=== PATIENT | male | born 1980 | race American Indian/Alaskan Native ===

== ENCOUNTER 2017-02-25 10:45 | Emergency (ER) | payer SELFPAY ==
[2017-02-25 11:28] LABS: Basophils % (Auto) 0.9 % (0.0-1.8); Hematocrit 40.6 % (35.5-45.6); Hemoglobin 13.8 gm/dl (11.8-15.2); Mean Corpuscular HGB Conc 34 % (32-34); Mean Corpuscular Hemoglobin 30 pg (28-32); Mean Corpuscular Volume 88 fl (84-94); Platelet Count 184 K/mm3 (140-440); Red Blood Count 4.61 M/mm3 (3.65-5.03); Red Cell Distribution Width 13.3 % (13.2-15.2); White Blood Count 6.5 K/mm3 (4.5-11.0)
[2017-02-25 11:47] LABS: Anion Gap 18 mmol/L; BUN/Creatinine Ratio 12; Blood Urea Nitrogen 11 mg/dL (9-20); Calcium 9.4 mg/dL (8.4-10.2); Carbon Dioxide 25 mmol/L (22-30); Chloride 100.4 mmol/L (98-107); Glucose 90 mg/dL (75-100); Potassium 3.7 mmol/L (3.6-5.0); Sodium 140 mmol/L (137-145)
--- NOTE | 2017-02-25 13:32 | Emergency Department Report ---
ED Chest Pain HPI - General Chief Complaint: Chest Pain Stated Complaint: CHEST PAIN Time Seen by Provider: 02/25/17 13:10 Source: patient Mode of arrival: Ambulatory Limitations: No Limitations - History of Present Illness Initial Comments: This is a 36 year-old male presents to the emergency department home with complaint of a 3 day history of some left-sided chest pain that this morning started radiating towards his back. He denies any nausea, vomiting, shortness of breath, or diaphoresis. He has not taken anything for her symptoms presentation. He denies any tobacco or illicit drug use or abuse. He denies any past medical history. He does not have a primary care physician. Recent travel or sick contacts at home. He has a family history of early coronary artery disease in his father. Severity scale (0 -10): 8 - Related Data Home Medications Medication Instructions Recorded Confirmed Last Taken No Known Home Medications [No 02/25/17 02/25/17 Unknown Reported Home Medications] Allergies Allergy/AdvReac Type Severity Reaction Status Date / Time No Known Allergies Allergy Unverified 02/25/17 11:06 Heart Score - HEART Score History: Slightly suspicious EKG: Non-specific Age: < 45 Risk factors: 1-2 risk factors Troponin: < normal limit HEART Score: 2 - Critical Actions Critical Actions: 0-3 pts:0.9-1.7%risk of adverse cardiac event.Candidate for discharge ED Review of Systems ROS: Stated complaint: CHEST PAIN Other details as noted in HPI Comment: All other systems reviewed and negative Constitutional: denies: chills, fever Eyes: denies: eye pain, eye discharge, vision change ENT: denies: ear pain, throat pain Respiratory: denies: cough, shortness of breath, wheezing Cardiovascular: chest pain. denies: palpitations Gastrointestinal: denies: abdominal pain, nausea, diarrhea Genitourinary: denies: urgency, dysuria Musculoskeletal: back pain. denies: arthralgia Skin: denies: rash, lesions Neurological: denies: headache, weakness, paresthesias ED Past Medical Hx - Past Medical History Hx GERD: Yes - Surgical History Past Surgical History?: No - Social History Smoking Status: Never Smoker Substance Use Type: None - Medications Home Medications: Home Medications Medication Instructions Recorded Confirmed Last Taken Type No Known Home Medications [No 02/25/17 02/25/17 Unknown History Reported Home Medications] ED Physical Exam - General Limitations: No Limitations - Other Other exam information: GENERAL: The patient is well-developed well-nourished. HENT: Normocephalic. Atraumatic. Patient has moist mucous membranes. EYES: Extraocular motions are intact. Pupils equal reactive to light bilaterally. NECK: Supple. Trachea is midline. CHEST/LUNGS: Clear to auscultation. There is no respiratory distress noted. HEART/CARDIOVASCULAR: Regular. There is no tachycardia. There is no gallop rub or murmur. ABDOMEN: Abdomen is soft, nontender. Patient has normal bowel sounds. There is no abdominal distention. SKIN: Skin is warm and dry. NEURO: The patient is awake, alert, and oriented. The patient is cooperative. The patient has no focal neurologic deficits. The patient has normal speech. MUSCULOSKELETAL: There is no tenderness or deformity. There is no limitation range of motion. There is no evidence of acute injury. ED Course Vital Signs 02/25/17 02/25/17 02/25/17 10:49 11:04 11:38 Temperature 99.0 F 98.3 F Pulse Rate 76 82 68 Respiratory 18 18 10 L Rate Blood Pressure 148/80 O2 Sat by Pulse 99 100 Oximetry 02/25/17 02/25/17 02/25/17 11:45 11:56 12:00 Temperature Pulse Rate 71 65 Respiratory 14 14 14 Rate Blood Pressure 141/86 131/91 O2 Sat by Pulse Oximetry 02/25/17 02/25/17 02/25/17 12:15 12:30 12:45 Temperature Pulse Rate 62 63 64 Respiratory 17 17 11 L Rate Blood Pressure 134/86 131/92 133/88 O2 Sat by Pulse Oximetry 02/25/17 02/25/17 02/25/17 13:00 13:15 13:30 Temperature Pulse Rate 66 78 58 L Respiratory 18 15 8 L Rate Blood Pressure 121/85 126/79 135/91 O2 Sat by Pulse Oximetry 02/25/17 13:45 Temperature Pulse Rate 65 Respiratory 13 Rate Blood Pressure 121/91 O2 Sat by Pulse Oximetry UZIEL score - Uziel Score Age > 65: (0) No Aspirin use within the Past 7 Days: (0) No 3 or more CAD Risk Factors: (0) No 2 or more Angina events in past 24 hrs: (0) No Known CAD with more than 50% Stenosis: (0) No Elevated Cardiac Markers: (0) No ST Deviation Greater than 0.5mm: (0) No UZIEL Score: 0 ED Medical Decision Making - Lab Data Result diagrams: 02/25/17 11:08 02/25/17 11:08 - EKG Data -: EKG Interpreted by Me EKG shows normal: sinus rhythm, axis, intervals, QRS complexes, ST-T waves Rate: normal - EKG Data When compared to previous EKG there are: previous EKG unavailable Interpretation: other (Sinus, Rate of 71, left axis deviation, no previous EKG, NO STEMI) - Radiology Data Radiology results: image reviewed interpreted by me: Chest x-ray does not show any acute process. There are no pleural effusions, obvious pneumonia and there is no pneumothorax. - Medical Decision Making 36-year-old male presents with three-day history of some chest pain. His only risk factor for coronary artery disease is his father's early heart history. EKG does not show any signs of ST elevation VT. Labs are unremarkable including negative troponins 2 and a negative d-dimer. He was reevaluated multiple times at multiple hours and is feeling improved. Chest x-ray does not show any acute process. He appears safe for discharge home at this time. He' ll be given referrals for primary care as well as a scheduling clerk. He will return to the ER with any worsening of symptoms or any acute distress. - Differential Diagnosis costochondritis, VT, PE, GERD, pneumonia Critical Care Time: No Critical care attestation.: If time is entered above; I have spent that time in minutes in the direct care of this critically ill patient, excluding procedure time. ED Disposition Clinical Impression: Chest pain Qualifiers: Chest pain type: unspecified Qualified Code(s): R07.9 - Chest pain, unspecified Disposition: DC-01 TO HOME OR SELFCARE Is pt being admited?: No Condition: Stable Instructions: Chest Pain (ED) Additional Instructions: Please follow up with a primary care physician in the next few days. I have given you a referral for a local scheduling clerk, ana luisa Chang to follow up regarding your chest discomfort. Return to the emergency Department with any worsening of your symptoms or any acute distress. Referrals: ANA CORNEJO MD [Primary Care Provider] - 3-5 Days SANDRINE HARMON MD [Staff Physician] - 3-5 Days TEE RENEE MD [Staff Physician] - 3-5 Days [facility] [Outside] - 3-5 Days [facility] [Outside] - 3-5 Days Time of Disposition: 14:52
--- NOTE | 2017-02-25 13:33 | XRay Report ---
AP CHEST: HISTORY: chest pain AP view of the chest demonstrates a normal mediastinal and cardiac contour with clear lungs and normal bony and soft tissue structures. IMPRESSION: Unremarkable AP chest.
[2017-02-25] MEDS ORDERED: BABY ASPIRIN PO ONE (14:07)
[2017-02-25] MEDS ORDERED: NORCO 5/325 PO ONE (14:07)
[2017-02-25 15:43] VITALS: BP 120/64
== END 2017-02-25 15:43 | disposition home or self-care (01) ==
LOC: ED 10:45
DX: R07.89 Other chest pain (principal); K21.9 Gastro-esophageal reflux disease without esophagitis
CPT/HCPCS: 36415; 71010; 80048; 84484; 85025; 85379; 93005; 93010; 99284

== ENCOUNTER 2019-03-06 08:03 | Emergency (ER) | payer SELFPAY ==
--- NOTE | 2019-03-06 08:30 | XRay Report ---
RIGHT HAND, 3 VIEWS INDICATION: obvious deformity to Rt. ring finger. COMPARISON: None. IMPRESSION: Posterior dislocation is identified at the PIP joint of the fourth digit. No associated fracture is detected. The remaining bony structures and joint spaces are within normal limits. Soft t issue swelling of the fourth digit is noted. Signer Name: Xavier Davis Jr, MD Signed: 03/06/2019 8:26 AM Workstation Name: [id number]
--- NOTE | 2019-03-06 08:52 | Emergency Department Report ---
HPI - General Chief Complaint: Extremity Injury, Upper Time Seen by Provider: 03/06/19 08:37 - HPI HPI: Room 29 The patient is a 38-year-old male presenting with a chief complaint of finger pain. The patient states approximately one hour prior to arrival out of frustration he punched the steering wheel injuring his right ring finger. Patient presents with a deformity to the right ring finger at the PIP. Denies any other complaints Location: [See above] Duration: [See above] Quality: [See above] Severity: [See above] Timing: [See above] Context: [See above] Modifying factors: [See above] Associated signs and symptoms: [see above] ED Past Medical Hx - Past Medical History Hx GERD: Yes - Surgical History Past Surgical History?: No - Family History Family history: no significant - Social History Smoking Status: Never Smoker Substance Use Type: None - Medications Home Medications: Home Medications Medication Instructions Recorded Confirmed Last Taken Type HYDROcodone/APAP 5-325 [[place] 1 - 2 each PO Q6HR PRN #14 tablet 03/06/19 Unknown Rx 5/325] Ibuprofen [Motrin 800 MG tab] 800 mg PO Q8HR PRN #20 tablet 03/06/19 Unknown Rx ED Review of Systems ROS: Stated complaint: R FINGER INJURY Other details as noted in HPI Musculoskeletal: arthralgia Physical Exam - Physical Exam Vital Signs: Vital Signs 03/06/19 08:08 Temperature 97.7 F Pulse Rate 67 Respiratory 16 Rate Blood Pressure 162/91 O2 Sat by Pulse 99 Oximetry Physical Exam: GENERAL: The patient is well-developed well-nourished male sitting in chair not appearing to be in acute distress. [] HEENT: Normocephalic. Atraumatic. Extraocular motions are intact. Patient has moist mucous membranes. NECK: Trachea midline CHEST/LUNGS: There is no respiratory distress noted. HEART/CARDIOVASCULAR: Normal capillary refill right ring finger SKIN: There is no rash. There is no edema. There is no diaphoresis. No lacerations seen NEURO: The patient is awake, alert, and oriented. The patient is cooperative. Normal sensation to light touch. The patient has normal speech MUSCULOSKELETAL: There is pain and deformity of the right ring finger at the PIP ED Course Vital Signs 03/06/19 08:08 Temperature 97.7 F Pulse Rate 67 Respiratory 16 Rate Blood Pressure 162/91 O2 Sat by Pulse 99 Oximetry ED Medical Decision Making - Radiology Data Radiology results: report reviewed (right hand x-ray), image reviewed (right hand x-ray #1, right finger x-ray) interpreted by me: Ring finger dislocated at the PIP. No fracture seen Post reduction [id number]. No acute fracture Findings [facility] [address] [place] [address] XRay Report Signed Patient: NORMA PORTER MR#: [id number] : 1980 Acct:[id number] Age/Sex: 38 / M ADM Date: 03/06/19 Loc: ED Attending Dr: Ordering Physician: ED MD ANNEMARIE Date of Service: 03/06/19 Procedure(s): XR hand 3+V RT Accession Number(s): [id number] cc: ED MD ANNEMARIE Fluoro Time In Minutes: RIGHT HAND, 3 VIEWS INDICATION: obvious deformity to Rt. ring finger. COMPARISON: None. IMPRESSION: Posterior dislocation is identified at the PIP joint of the fourth digit. No associated fracture is detected. The remaining bony structures and joint spaces are within normal limits. Soft tissue swelling of the fourth digit is noted. Signer Name: Xavier Davis Jr, MD Signed: 03/06/2019 8:26 AM Workstation Name: [id number] Transcribed By: TTR Dictated By: XAVIER DAVIS JR, MD Electronically Authenticated By: XAVIER DAVIS JR, MD Signed Date/Time: 03/06/19825 DD/ 4 TD/TT: - Differential Diagnosis finger dislocation Critical care attestation.: If time is entered above; I have spent that time in minutes in the direct care of this critically ill patient, excluding procedure time. ED Disposition Clinical Impression: Dislocation of right ring finger, Finger pain Disposition: DC-01 TO HOME OR SELFCARE Is pt being admited?: No Does the pt Need Aspirin: No Condition: Stable Instructions: Finger Dislocation (ED) Additional Instructions: Return to the emergency department should you develop worsening symptoms, inability to tolerate food or liquids, high fever or any other concerns Prescriptions: Ibuprofen [Motrin 800 MG tab] 800 mg PO Q8HR PRN #20 tablet PRN Reason: Pain, Moderate (4-6) HYDROcodone/APAP 5-325 [[place] 5/325] 1 - 2 each PO Q6HR PRN #14 tablet PRN Reason: Pain Referrals: PRIMARY CARE, [Primary Care Provider] - 3-5 Days JEFF RAMIREZ MD [Staff Physician] - 3-5 Days (Dr. Ramirez is an orthopedic surgeon. Please follow up with him for further evaluation) Time of Disposition: 09:23
--- NOTE | 2019-03-06 09:28 | XRay Report ---
LEFT RING FINGER 2 VIEWS 9:18 AM INDICATION: status post reduction. COMPARISON: Earlier the same day FINDINGS: Previously seen ring finger PIP dislocation has been reduced. No new findings. IMPRESSION: 1. Satisfactory postreduction appearance. Signer Name: Tito Lopez MD Signed: 03/06/2019 9:24 AM Workstation Name: [id number]
[2019-03-06 09:58] VITALS: BP 147/104
== END 2019-03-06 09:58 | disposition home or self-care (01) ==
LOC: ED 08:03
DX: S63.252A Unspecified dislocation of right middle finger, initial encounter (principal); K21.9 Gastro-esophageal reflux disease without esophagitis; X58.XXXA Exposure to other specified factors, initial encounter; Y93.89 Activity, other specified; Y92.89 Other specified places as the place of occurrence of the external cause; Y99.8 Other external cause status